=== PATIENT | female | born 1945 | race Caucasian/White ===

== ENCOUNTER 2016-11-03 07:15 | Day surgery (SDC) | payer MEDICARE ==
[~2016-11-03 07:15] MED LIST: ACETAMINOPHEN 1000MG/100 ML PREMIX IV ONE
[2016-11-03] MEDS ORDERED: MIDAZOLAM HCL 2MG/2ML VIAL IV ONE (10:40)
[2016-11-03] MEDS ORDERED: FENTANYL PF 100MCG/2ML VIAL IV ONE (10:40)
[2016-11-03] MEDS ORDERED: PROPOFOL 10 MG/ML VIAL IV ONE (10:40)
[2016-11-03] MEDS ORDERED: LIDOCAINE 2% MDV (20MG/ML) 20ML VIAL IV ONE (10:40)
[2016-11-03] MEDS ORDERED: HYDROCODONE/APAP 5/325MG TABLET PO ONE (12:49)
[2016-11-03] MEDS ORDERED: BUPIVACAINE 0.25% W/EPI MPF 30ML VIAL IVP ONE (12:49)
--- NOTE | 2016-11-03 13:43 | Operative Note ---
OPERATIVE REPORT DATE OF PROCEDURE: 11/03/2016. SURGEON: Ranjan Rosales D.O. REFERRING PHYSICIAN: Jono Hernández M.D. PREOPERATIVE DIAGNOSIS: Dysplastic nevi times two on the patient's chest. Dysplastic nevi times two on her back. POSTOPERATIVE DIAGNOSIS: Dysplastic nevi times two on the patient's chest. Dysplastic nevi times two on her back. PROCEDURE: Excision of dysplastic nevi on the back and chest DESCRIPTION OF PROCEDURE: The patient is a 71-year-old female who was brought to the operating room and was placed in the supine position. Local intravenous sedation was given per the Department of Anesthesia. The patient was rotated into the right lateral position. Her back was prepped and draped in the usual fashion. The areas had been marked properly. At this time, each one was anesthetized with a total of 5.0 mL of 0.25% Sensorcaine with epinephrine. An elliptical incision was made around each. Each one on her back measured about 4.0 x 3.0 cm under the subcutaneous tissue. These were then completely excised. The wounds were then closed with 3-0 and 4-0 Vicryl. Steri-Strips were applied. The patient was then rotated supine, and the areas on her chest were prepped and draped as well. Again each one was anesthetized with about 4.0 mL of 0.25% Sensorcaine with epinephrine. Each one of these also measured about 4.0 x 3.0 cm. Each one was excised in a similar fashion and closed with 3-0 and 4-0 Vicryl. She was taken to the recovery room in satisfactory condition. Final pathology is pending. FINDINGS AT THE TIME OF SURGERY: Dysplastic nevi times four, two on her back and two on her front; all excised. Ranjan Rosales D.O. Date Time JOB NUMBER: [id number] cc: Rae Mayfield D.O. MTDD
== END 2016-11-03 10:25 | disposition home or self-care (01) ==
LOC: SUR 07:15
PROVIDERS: ATTEND Surgery
DX: D23.5 Other benign neoplasm of skin of trunk (principal); D24.2 Benign neoplasm of left breast; E78.00 Pure hypercholesterolemia, unspecified; E11.9 Type 2 diabetes mellitus without complications; Z79.84 Long term (current) use of oral hypoglycemic drugs; E03.9 Hypothyroidism, unspecified
CPT/HCPCS: 11406; 12032; 11404; 00400; J3010

== ENCOUNTER 2019-09-05 12:28 | Day surgery (SDC) | payer MEDICARE ==
[2019-09-05] MEDS ORDERED: PROPOFOL 10 MG/ML VIAL IV ONE (12:29)
[2019-09-05] MEDS ORDERED: LIDOCAINE 2% MDV (20MG/ML) 20ML VIAL IV ONE (12:29)
--- NOTE | 2019-09-06 07:40 | Operative Note ---
DATE: 09/05/2019 OPERATION: COLONOSCOPY to the cecum. INDICATION: Colorectal cancer screening. The patient's last examination was 10 years ago. ANESTHESIA: Intravenous sedation was administered by the department of anesthesiology and included Diprivan titrated to effect. PROCEDURE: Following informed consent from this alert individual including a discussion of the risks and benefits of the procedure and an opportunity for the patient to ask questions, the patient was in the left lateral decubitus position. A digital rectal examination was performed. No masses were noted. Following this, the Olympus [id number] video colonoscope was inserted into the rectum without resistance. The rectal mucosa had a normal appearance with normal folds and distensibility. The colonoscope was advanced up through the bowel to the level of the cecum with some difficulty. Abdominal pressure support was supplied by the nursing staff to facilitate reaching the cecum. Scattered diverticula were noted in the sigmoid colon. No other changes were appreciated throughout the bowel. Overall, the colon preparation as adequate. From the base of the cecum, the colonoscope was then slowly withdrawn. Again diverticulosis only was noted in the left colon. No other changes appreciated. Retroflexion in the rectum was endoscopically normal. The endoscope was straightened and removed. The patient tolerated the procedure well and was returned to the recovery area in stable condition. IMPRESSION: 1. Sigmoid diverticulosis. 2. Otherwise unremarkable colonoscopy to the cecum. RECOMMENDATIONS: The patient was advised to have recheck colonoscopy in 10 years' time or sooner if problems arise. Followup will be with Jono Hernández MD, and Naye Atkinson, nurse practitioner. As always, thank you for allowing me to participate in the care of your patient. RAMON
== END 2019-09-05 15:20 | disposition home or self-care (01) ==
LOC: HOP 12:28
PROVIDERS: ATTEND Internal Medicine Gastroenterology
DX: Z12.11 Encounter for screening for malignant neoplasm of colon (principal); K57.30 Diverticulosis of large intestine without perforation or abscess without bleeding; E11.9 Type 2 diabetes mellitus without complications; I10 Essential (primary) hypertension; E78.00 Pure hypercholesterolemia, unspecified; K21.9 Gastro-esophageal reflux disease without esophagitis; M54.9 Dorsalgia, unspecified
CPT/HCPCS: 00812; G0121